=== PATIENT | female | born 1955 | race Caucasian/White ===

== ENCOUNTER 2018-12-24 09:04 | Emergency (ER) | payer MEDICARE ==
--- NOTE | 2018-12-24 09:41 | EDM.PDOC ---
ED HPI GENERAL MEDICAL PROBLEM - General Chief Complaint: General Stated Complaint: SEVERE DIZZINESS, SINUS ISSUES, NASUEA Time Seen by Provider: 12/24/18 09:32 Source of Information: Reports: Patient, RN Notes Reviewed History Limitations: Reports: No Limitations - History of Present Illness INITIAL COMMENTS - FREE TEXT/NARRATIVE: 63-year-old female presents emergency department today with complaint of sinus pressure headache and some dizziness. She does have a known history of recurrent sinusitis usually controlled with Flonase this particular event has been going on for the last several days is progressively gotten worse. She is not had any fevers. Was sent from clinic for further evaluation - Related Data Allergies Allergy/AdvReac Type Severity Reaction Status Date / Time No Known Allergies Allergy Verified 12/24/18 09:12 Home Meds: Home Meds Amoxicillin/Potassium Clav [Augmentin 875-125 Tablet] 1 each PO BID #10 tablet 12/24/18 [Rx] Aspirin 81 mg PO DAILY 12/24/18 [History] FLUoxetine HCl [Fluoxetine HCl] 20 mg PO DAILY 12/24/18 [History] Levothyroxine 245 mcg PO DAILY 12/24/18 [History] Meloxicam 15 mg PO DAILY 12/24/18 [History] Metoprolol Tartrate 25 mg PO DAILY 12/24/18 [History] atorvaSTATin [Lipitor] 80 mg PO DAILY 12/24/18 [History] rOPINIRole [Requip] 0.5 mg PO TID 12/24/18 [History] Past Medical History HEENT History: Reports: Impaired Vision, Sinusitis Cardiovascular History: Reports: CAD, High Cholesterol Gastrointestinal History: Reports: GERD Endocrine/Metabolic History: Reports: Hypothyroidism - Past Surgical History Musculoskeletal Surgical History: Reports: Hip Replacement Social & Family History - Tobacco Use Smoking Status *Q: Heavy Tobacco Smoker Years of Tobacco use: 47 Packs/Tins Daily: 0.5 ED ROS GENERAL - Review of Systems Review Of Systems: See Below Constitutional: Denies: Fever, Chills HEENT: Reports: Sinus Problem. Denies: Rhinitis Respiratory: Reports: No Symptoms Cardiovascular: Reports: No Symptoms GI/Abdominal: Reports: No Symptoms Neurological: Reports: Dizziness (No difficulty with ambulation) ED EXAM, GENERAL - Physical Exam Exam: See Below Exam Limited By: No Limitations General Appearance: Alert, WD/WN, No Apparent Distress Throat/Mouth: Normal Inspection, Normal Lips, Normal Teeth, Normal Gums, Normal Oropharynx, Normal Voice, No Airway Compromise Head: Sinus Tenderness (Frontal predominantly on the left) Neck: Normal Inspection, Supple, Non-Tender, Full Range of Motion Respiratory/Chest: No Respiratory Distress, Lungs Clear, Normal Breath Sounds, No Accessory Muscle Use Cardiovascular: Regular Rate, Rhythm, No Murmur GI/Abdominal: Soft, Non-Tender Course - Vital Signs Last Recorded V/S: Last Vital Signs Temp 96 F 12/24/18 09:27 Pulse 78 12/24/18 09:27 Resp 18 12/24/18 09:27 BP 144/73 H 12/24/18 09:27 Pulse Ox 99 12/24/18 09:27 Departure - Departure Time of Disposition: 09:39 Disposition: Home, Self-Care 01 Condition: Good Clinical Impression: Sinusitis Qualifiers: Sinusitis location: frontal Chronicity: acute Recurrence: recurrent Qualified Code(s): J01.11 - Acute recurrent frontal sinusitis - Discharge Information Prescriptions: Amoxicillin/Potassium Clav [Augmentin 875-125 Tablet] 1 each PO BID #10 tablet Instructions: Sinusitis, Adult, [id number] Referrals: Raisa Weiner DO [Primary Care Provider] - Additional Instructions: Take full course of antibiotics, use Tylenol or Motrin as needed for headache pain, Please followup with your primary care provider in 3-5 days if not better , please call return to the emergency department with worsening of symptoms. - Assessment/Plan Plan: Assessment Acuity = acute Site and laterality = sinusitis Etiology = probable bacterial cause Manifestations = none Location of injury = Home Lab values = none Plan Elected to treat empirically Augmentin 875 by mouth twice a day 10 days medications faxed to [facility] This note was dictated using [employer] recognition software please call with any questions on syntax or grammar.
== END 2018-12-24 09:47 | disposition home or self-care (01) ==
LOC: JP.ED 09:04
DX: J01.11 Acute recurrent frontal sinusitis (principal); E03.9 Hypothyroidism, unspecified; E78.00 Pure hypercholesterolemia, unspecified; F17.210 Nicotine dependence, cigarettes, uncomplicated; Z79.82 Long term (current) use of aspirin; Z79.899 Other long term (current) drug therapy
CPT/HCPCS: 99283

== ENCOUNTER 2019-01-08 06:58 | Day surgery (SDC) | payer MEDICARE ==
[2019-01-08] MEDS ORDERED: Dextrose 5%-Lactated Ringers 1,000 ML IV SCH (07:45)
[2019-01-08] MEDS ORDERED: Midazolam 1 MG/ML 2 ML SDV ONE (08:18)
[2019-01-08] MEDS ORDERED: Propofol 200 MG/20 ML SDV ONE (08:18)
[2019-01-08] MEDS ORDERED: fentaNYL 100 MCG/2 ML SDV ONE (08:18)
--- NOTE | 2019-01-17 08:47 | OR ---
DATE OF PROCEDURE: 01/08/2019 SURGEON: John Laird MD PREOPERATIVE DIAGNOSIS: History of colon polyps. POSTOPERATIVE DIAGNOSES: 1. History of colon polyps with no recurrent polyp formation. 2. Limited left colonic diverticulosis. OPERATIVE PROCEDURE: Flexible colonoscopy. ANESTHESIA: IV sedation. INDICATION FOR PROCEDURE: This is a 63-year-old presenting for a screening colonoscopy. Plan is to proceed with a colonoscopy with biopsies and polypectomy as indicated. Potential risks of procedure including bleeding and perforation were discussed, and the patient wishes to proceed. DETAILS OF PROCEDURE: The patient was taken to the operating room and placed in a left lateral decubitus position. IV sedation was administered, after which the initial digital rectal exam was performed and was unremarkable. Colonoscope was then passed into the rectum with retroflexion revealing uncomplicated hemorrhoidal columns. The scope was eventually passed to the level of the cecum with prep being fairly good. Only a small amount of liquid stool was present to that level. No additional polyp formation was seen. Otherwise, there were no areas of colitis. There were a few scattered uncomplicated diverticula in the left colon. Otherwise, examination was negative. The scope was then withdrawn. Above findings were reconfirmed, and the procedure was concluded. The patient was taken to the recovery room in satisfactory condition. Recommendation would be to repeat the colonoscopy in 5 years. John Laird MD /[id number]
== END 2019-01-08 12:13 | disposition home or self-care (01) ==
LOC: JP.SDS 06:58
PROVIDERS: ATTEND Surgery
DX: Z12.11 Encounter for screening for malignant neoplasm of colon (principal); K57.30 Diverticulosis of large intestine without perforation or abscess without bleeding; K64.9 Unspecified hemorrhoids; K21.9 Gastro-esophageal reflux disease without esophagitis; E03.9 Hypothyroidism, unspecified; E78.5 Hyperlipidemia, unspecified; F17.200 Nicotine dependence, unspecified, uncomplicated; G47.33 Obstructive sleep apnea (adult) (pediatric); Z86.010 Personal history of colon polyps
CPT/HCPCS: G0121; J2250; J2704; J3010; J7042

== ENCOUNTER 2019-12-16 09:05 | Emergency (ER) | payer MEDICARE ==
--- NOTE | 2019-12-16 09:57 | EDM.PDOC ---
ED HPI GENERAL MEDICAL PROBLEM - General Chief Complaint: General Stated Complaint: SOB, LOWER BACK AND NECK PAIN Time Seen by Provider: 12/16/19 09:40 Source of Information: Reports: Patient, Old Records, RN History Limitations: Reports: No Limitations - History of Present Illness INITIAL COMMENTS - FREE TEXT/NARRATIVE: 64 yo female presents with low back pain, ROBERTS, and a mild ODRADO and fatigue. Sx's have waxed and waned since October. Saw her primary a couple weeks ago and was told without testing that this was from a virus and later PT was prescribed which she did. Feels warm and sweaty at times but no fever documented. No known exposures. No orthopnea. Was told by cardiology in the past that she has a single, ? LAD coronary lesion, but has never had chest pain. Has a rare, dry cough, mainly at night. No leg swelling. Appetite is decreased. Last BM 3 days ago, not unusual for her. Feels some sinus pressure. Has subtle nausea without vomiting. Onset: Gradual Onset Date: 11/06/19 Duration: Waxing/Waning Location: Reports: Generalized Quality: Reports: Ache (back) Severity: Mild Improves with: Reports: Rest Worsens with: Reports: Other (exertion) Context: Reports: Other (see HPI) Associated Symptoms: Reports: Cough (rare, dry, at night), Headaches (in sinus areas), Loss of Appetite, Malaise, Nausea/Vomiting (mild nausea without vomiting), Shortness of Breath (on exertion only), Weakness (generalized). Denies: Confusion, Chest Pain, Fever/Chills, Rash, Seizure, Syncope Treatments NURSING HOME PHYSICIAN: Reports: Acetaminophen (Says 1000 mg every 4 hrs.) Neck Pain Score (Numeric/FACES): 5 - Related Data Allergies Allergy/AdvReac Type Severity Reaction Status Date / Time No Known Allergies Allergy Verified 01/08/19 07:16 Home Meds: Home Meds Aspirin 81 mg PO DAILY 12/24/18 [History] FLUoxetine HCl [Fluoxetine HCl] 20 mg PO DAILY 12/24/18 [History] Levothyroxine 225 mcg PO DAILY 12/24/18 [History] Meloxicam 15 mg PO DAILY 12/24/18 [History] Metoprolol Tartrate 25 mg PO DAILY 12/24/18 [History] atorvaSTATin [Lipitor] 80 mg PO DAILY 12/24/18 [History] rOPINIRole [Requip] 0.5 mg PO BEDTIME PRN 12/24/18 [History] Ranitidine HCl [Ranitidine] 150 mg PO DAILY 01/04/19 [History] Doxycycline [Vibra-Tabs] 100 mg PO Q12HR #28 tab 12/16/19 [Rx] Ondansetron [Zofran ODT] 4 mg PO Q6H PRN #10 tab.dis 12/16/19 [Rx] Past Medical History HEENT History: Reports: Impaired Vision, Sinusitis Cardiovascular History: Reports: CAD, High Cholesterol Gastrointestinal History: Reports: Colon Polyp, GERD [employer] History: Reports: Musculoskeletal History: Reports: Osteoarthritis Neurological History: Reports: Vertigo Psychiatric History: Reports: Anxiety Endocrine/Metabolic History: Reports: Hypothyroidism - Infectious Disease History Infectious Disease History: Reports: Chicken Pox 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 - Past Surgical History GI Surgical History: Reports: Appendectomy, Cholecystectomy, Colonoscopy Musculoskeletal Surgical History: Reports: Hip Replacement Other Musculoskeletal Surgeries/Procedures:: right hip Social & Family History - Family History Family Medical History: Noncontributory - Tobacco Use Smoking Status *Q: Current Every Day Smoker Years of Tobacco use: 50 Packs/Tins Daily: 0.5 - Caffeine Use Caffeine Use: Reports: Coffee, Soda - Recreational Drug Use Recreational Drug Use: No ED ROS GENERAL - Review of Systems Review Of Systems: See Below Constitutional: Reports: Malaise, Weakness, Fatigue (Thyroid was normal for her annual physical just before she became ill.), Decreased Appetite. Denies: Fever, Chills HEENT: Reports: Other (sinus pressure) Respiratory: Reports: Shortness of Breath (ROBERTS only), Cough (rare, dry, and at night). Denies: Wheezing, Pleuritic Chest Pain, Sputum, Hemoptysis Cardiovascular: Reports: Dyspnea on Exertion. Denies: Chest Pain, Lightheaded ness, Orthopnea, Palpitations, Syncope Endocrine: Reports: Fatigue GI/Abdominal: Reports: Anorexia, Constipation (last BM 3 days ago), Decreased Appetite, Flatus, Nausea. Denies: Abdominal Pain, Black Stool, Bloody Stool, Distension, Hematemesis, Hematochezia, Melena, Vomiting : Reports: No Symptoms Musculoskeletal: Reports: Back Pain (low) Skin: Reports: No Symptoms Neurological: Reports: No Symptoms Psychiatric: Reports: No Symptoms ED EXAM, GENERAL - Physical Exam Exam: See Below Exam Limited By: No Limitations General Appearance: Alert, WD/WN, No Apparent Distress Eye Exam: Bilateral Eye: Normal Inspection Ears: Normal External Exam, Normal Canal, Hearing Grossly Normal, Normal TMs Ear Exam: Bilateral Ear: Auricle Normal, Canal Normal, TM normal Nose: Normal Inspection, No Blood Throat/Mouth: Normal Inspection, Normal Lips, Normal Teeth, Normal Oropharynx, Normal Voice, No Airway Compromise, Other (oral mucosa slightly dry) Head: Atraumatic, Normocephalic Neck: Normal Inspection. No: Lymphadenopathy (R), Lymphadenopathy (L) Respiratory/Chest: No Respiratory Distress, No Accessory Muscle Use, Crackles (R base). No: Lungs Clear, Normal Breath Sounds, Decreased Breath Sounds, Wheezing, Stridor Cardiovascular: Regular Rate, Rhythm, No Edema, Tachycardia (mildly tachycardic(this is why she is prescribed metoprolol)) GI/Abdominal: Normal Bowel Sounds, Soft, Non-Tender, No Distention. No: Distended, Tender Back Exam: Normal Inspection. No: CVA Tenderness (R), CVA Tenderness (L) Extremities: Normal Inspection, Normal Range of Motion, Non-Tender, No Pedal Edema. No: Pedal Edema Neurological: Alert, Oriented, CN II-XII Intact, Normal Cognition, No Motor/Sensory Deficits Psychiatric: Normal Affect, Anxious Skin Exam: Warm, Dry, Intact, Normal Color, No Rash Course - Vital Signs Text/Narrative:: Orthostatic vitals WNL's Last Recorded V/S: Last Vital Signs Temp 36.7 C 12/16/19 09:21 Pulse 111 H 12/16/19 10:00 Resp 18 12/16/19 09:21 BP 123/81 12/16/19 10:00 Pulse Ox 97 12/16/19 09:21 Orthostatic Blood Pressure [ 123/81 Standing] Orthostatic Blood Pressure [ 113/80 Sitting] Orthostatic Blood Pressure [ 106/72 Supine] - Orders/Labs/Meds Orders: Active Orders 24 hr Category Date Time Status Orthostatic Vital Signs [RC] ASDIRECTED Care 12/16/19 09:51 Active HUMAN GRANULOCYTIC ROOPA-H[facility] Routine Lab 12/16/19 10:20 Received LYME, TOTAL AB TEST/REFLEX Routine Lab 12/16/19 10:20 Received Labs: Laboratory Tests 12/16/19 12/16/19 12/16/19 Range/Units 09:50 10:04 10:26 WBC 4.6 (4.5-11.0) K/uL RBC 4.05 (3.30-5.50) M/uL Hgb 11.4 L (12.0-15.0) g/dL Hct 36.5 (36.0-48.0) % MCV 90 (80-98) fL MCH 28 (27-31) pg MCHC 31 L (32-36) % Plt Count 120 L (150-400) K/uL Sodium 138 L (140-148) mmol/L Potassium 4.1 (3.6-5.2) mmol/L Chloride 103 (100-108) mmol/L Carbon Dioxide 25 (21-32) mmol/L Anion Gap 14.1 H (5.0-14.0) mmol/L BUN 17 (7-18) mg/dL Creatinine 1.0 (0.6-1.0) mg/dL Est Cr Clr Drug Dosing 45.78 mL/min Estimated GFR (MDRD) 55 L (>60) Glucose 98 (74-106) mg/dL Calcium 9.0 (8.5-10.1) mg/dL AST 54 H (15-37) U/L Lactate Dehydrogenase 189 (82-234) U/L Troponin I < 0.017 (0.000-0.056) ng/mL C-Reactive Protein 12.13 H (0.0-0.3) mg/dL Urine Color (YELLOW) Urine Appearance (CLEAR) Urine pH (5.0-8.0) Ur Specific [place] (1.008-1.030) Urine Protein (NEGATIVE) mg/dL Urine Glucose (UA) (NEGATIVE) mg/dL Urine Ketones (NEGATIVE) mg/dL Urine Occult Blood (NEGATIVE) Urine Nitrite (NEGATIVE) Urine Bilirubin (NEGATIVE) Urine Urobilinogen (0.2-1.0) EU/dL Ur Leukocyte Esterase (NEGATIVE) Urine RBC (0-5) Urine WBC (0-5) Ur Epithelial Cells Amorphous Sediment Urine Bacteria Urine Mucus 12/16/19 Range/Units 10:29 WBC (4.5-11.0) K/uL RBC (3.30-5.50) M/uL Hgb (12.0-15.0) g/dL Hct (36.0-48.0) % MCV (80-98) fL MCH (27-31) pg MCHC (32-36) % Plt Count (150-400) K/uL Sodium (140-148) mmol/L Potassium (3.6-5.2) mmol/L Chloride (100-108) mmol/L Carbon Dioxide (21-32) mmol/L Anion Gap (5.0-14.0) mmol/L BUN (7-18) mg/dL Creatinine (0.6-1.0) mg/dL Est Cr Clr Drug Dosing mL/min Estimated GFR (MDRD) (>60) Glucose (74-106) mg/dL Calcium (8.5-10.1) mg/dL AST (15-37) U/L Lactate Dehydrogenase (82-234) U/L Troponin I (0.000-0.056) ng/mL C-Reactive Protein (0.0-0.3) mg/dL Urine Color [place] A (YELLOW) Urine Appearance Cloudy A (CLEAR) Urine pH 5.0 (5.0-8.0) Ur Specific [place] >= 1.030 (1.008-1.030) Urine Protein 100 H (NEGATIVE) mg/dL Urine Glucose (UA) Negative (NEGATIVE) mg/dL Urine Ketones Negative (NEGATIVE) mg/dL Urine Occult Blood Moderate H (NEGATIVE) Urine Nitrite Negative (NEGATIVE) Urine Bilirubin Small (NEGATIVE) Urine Urobilinogen 1.0 (0.2-1.0) EU/dL Ur Leukocyte Esterase Negative (NEGATIVE) Urine RBC Not seen (0-5) Urine WBC Not seen (0-5) Ur Epithelial Cells Moderate Amorphous Sediment Few Urine Bacteria Moderate Urine Mucus Moderate Meds: Medications Discontinued Medications Generic Name Dose Route Start Last Admin Trade Name Freq PRN Reason Stop Dose Admin Ondansetron HCl 4 mg 12/16/19 10:42 Zofran Odt PO 12/16/19 10:43 ONETIME ONE - Radiology Interpretation Free Text/Narrative:: CXR-neg Departure - Departure Time of Disposition: 10:50 Disposition: Home, Self-Care 01 Condition: Fair Clinical Impression: Tick-borne disease - Discharge Information *PRESCRIPTION DRUG MONITORING PROGRAM REVIEWED*: No *COPY OF PRESCRIPTION DRUG MONITORING REPORT IN PATIENT NOLAN: No Prescriptions: Doxycycline [Vibra-Tabs] 100 mg PO Q12HR #28 tab Ondansetron [Zofran ODT] 4 mg PO Q6H PRN #10 tab.dis PRN Reason: Nausea Referrals: Raisa Weiner DO [Primary Care Provider] - Forms: ED Department Discharge Additional Instructions: Take the doxycycline as prescribed, avoid any calcium containing food/supplements 2 hrs before or after this med. Use Zofran as needed for nausea control. Limit your acetaminophen to 1000 mg every 6 hrs maxium. Drink more fluids so that your urine is light yellow in color. Consider Miralax to promote more regular BM's. Recheck with your provider by to review outstanding tests. Sepsis Event Note (ED) - Evaluation Sepsis Screening Result: No Definite Risk - Focused Exam Vital Signs: Vital Signs Temp Pulse Resp BP Pulse Ox 12/16/19 10:00 111 H 123/81 12/16/19 09:21 36.7 C 108 H 18 136/71 97 - My Orders Last 24 Hours: My Active Orders 12/16/19 09:51 Orthostatic Vital Signs [RC] ASDIRECTED 12/16/19 10:20 HUMAN GRANULOCYTIC RO[facility]A-[facility] Routine LYME, TOTAL AB TEST/REFLEX Routine - Assessment/Plan Last 24 Hours: My Active Orders 12/16/19 09:51 Orthostatic Vital Signs [RC] ASDIRECTED 12/16/19 10:20 HUMAN GRANULOCYTIC ROOPA-HGE Routine LYME, TOTAL AB TEST/REFLEX Routine
--- NOTE | 2019-12-16 10:37 | CR ---
CHEST: 2 view CLINICAL HISTORY:Abnormal breath sounds right lung base COMPARISON:None FINDINGS: The heart size, pulmonary vascularity and hilar structures are normal. No infiltrate effusion or pneumothorax is seen. IMPRESSION: No acute cardiopulmonary process.
[2019-12-16] MEDS ORDERED: Ondansetron 4 MG Tab.DIS PO ONE (10:42)
[2019-12-18 14:10] LABS: HGE IGG TITER Negative (Neg:<1:64); HGE IGM TITER Negative (Neg:<1:20)
[2019-12-24 04:08] LABS: IGG P18 AB. Present (.); IGG P23 AB. Absent (.); IGG P28 AB. Absent (.); IGG P30 AB. Absent (.); IGG P39 AB. Present (.); IGG P41 AB. Present (.); IGG P45 AB. Absent (.); IGG P58 AB. Present (.); IGG P66 AB. Absent (.); IGG P93 AB. Absent (.); IGM P23 AB. Present (.); IGM P39 AB. Present (.); IGM P41 AB. Present (.); LYME IGG WB INTERP. Negative (.); LYME IGG/IGM AB 1.81 ISR (0.00-0.90); LYME IGM WB INTERP. Positive (.)
== END 2019-12-16 11:03 | disposition home or self-care (01) ==
LOC: JP.ED 09:05
DX: M54.5 Low back pain (principal); R51 Headache; R06.02 Shortness of breath; R53.83 Other fatigue; I25.10 Atherosclerotic heart disease of native coronary artery without angina pectoris; E78.00 Pure hypercholesterolemia, unspecified; K21.9 Gastro-esophageal reflux disease without esophagitis; M19.90 Unspecified osteoarthritis, unspecified site; E03.9 Hypothyroidism, unspecified; F41.9 Anxiety disorder, unspecified; F17.210 Nicotine dependence, cigarettes, uncomplicated; Z79.82 Long term (current) use of aspirin; Z79.899 Other long term (current) drug therapy
CPT/HCPCS: 36415; 71046; 80048; 81001; 83615; 84450; 84484; 85027; 86140; 86666; 99285; A9270; 86617-59; 86618; 99283

== ENCOUNTER 2023-10-16 07:41 | Day surgery (SDC) | payer MEDICARE ==
[2023-10-16] MEDS: Lactated Ringers 1,000 ML IV SCH (08:39)
[2023-10-16] MEDS ORDERED: Propofol 200 MG/20 ML SDV ONE (08:56)
[2023-10-16] MEDS ORDERED: fentaNYL 100 MCG/2 ML SDV ONE (08:56)
== END 2023-10-16 11:35 | disposition home or self-care (01) ==
LOC: JP.SDS 07:41
PROVIDERS: ATTEND Family Medicine
DX: Z12.11 Encounter for screening for malignant neoplasm of colon (principal); Z86.010 Personal history of colon polyps; K64.8 Other hemorrhoids; K64.4 Residual hemorrhoidal skin tags; E78.5 Hyperlipidemia, unspecified; E03.9 Hypothyroidism, unspecified; K21.9 Gastro-esophageal reflux disease without esophagitis
CPT/HCPCS: G0105; J2704; J3010; J7120

== ENCOUNTER 2023-11-06 06:39 | Day surgery (SDC) | payer MEDICARE ==
[~2023-11-06 06:39] MED LIST: Bupivacaine 0.5% 50 ML MDV ONE
[2023-11-06] MEDS: Nozin Nasal Sanitizer NASBOTH SCH ×2 (07:00→20:25)
[2023-11-06 07:07] LABS: HEMOGLOBIN 12.9 g/dL (11.2-15.5); MEAN CORPUSCULAR HEMOGLOBIN 29.7 pg (31.6-35.5); MEAN CORPUSCULAR HGB CONC 33.9 g/dL (31.6-35.5); MEAN CORPUSCULAR VOLUME 87.4 fL (81.4-99.0); RED BLOOD CELL COUNT 4.35 M/uL (3.77-5.24); WHITE BLOOD CELL COUNT,WBC 4.9 K/uL (3.2-11.0)
[2023-11-06 07:22] LABS: ANION GAP 7.8 mmol/L (5.0-14.0); CALCIUM 9.1 mg/dL (8.5-10.1); CREATININE 0.9 mg/dL (0.6-1.0); EST CRCL DRUG DOSING (CG) 42.83 mL/min; POTASSIUM,K 3.9 mmol/L (3.6-5.2)
[2023-11-06] MEDS: Lactated Ringers 1,000 ML IV SCH (07:37)
[2023-11-06] MEDS ORDERED: Propofol 200 MG/20 ML SDV ONE ×2 (07:37→08:21)
[2023-11-06] MEDS ORDERED: oxyCODONE 5 MG Tab PO PRN (07:38)
[2023-11-06] MEDS ORDERED: Midazolam 1 MG/ML 2 ML SDV ONE (07:38)
[2023-11-06] MEDS ORDERED: fentaNYL 100 MCG/2 ML SDV ONE (07:38)
[2023-11-06] MEDS ORDERED: Ondansetron 4 MG/2 ML SDV IVPUSH PRN (07:39)
[2023-11-06] MEDS ORDERED: Magnesium Hydroxide 400 MG/5 ML Susp 30 ML Cup PO PRN (07:39)
[2023-11-06] MEDS ORDERED: Morphine 2 MG/ML SYRINGE IV PRN (07:39)
[2023-11-06] MEDS ORDERED: Docusate Sodium 100 MG Cap PO PRN (07:39)
[2023-11-06] MEDS ORDERED: rOPINIRole 0.5 MG Tab PO PRN (07:43)
[2023-11-06] MEDS ORDERED: Non-Formulary Medication 1 Each (Calcium Carbonate [Calcium Carbonate] 500 MG Tablet) PO SCH (07:45)
[2023-11-06] MEDS: Albuterol/Ipratropium 3.0-0.5 MG/3 ML Neb Soln NEB ONE (08:00)
[2023-11-06] MEDS ORDERED: ceFAZolin 2 GM in Sodium Chloride 0.9% 50 ML IV ONE (08:15)
[2023-11-06] MEDS: ceFAZolin 2 GM in Premix Bag 1 BAG IV ONE (08:40)
[2023-11-06] MEDS ORDERED: Levothyroxine 25 MCG Tab PO SCH (09:00)
[2023-11-06] MEDS ORDERED: Lactated Ringers 1,000 ML ONE (09:05)
[2023-11-06] MEDS ORDERED: ePHEDrine 50 MG/ML SDV ONE (09:34)
[2023-11-06] MEDS: oxyCODONE 5 MG Tab PO PRN (11:44)
[2023-11-06] MEDS: Sodium Chloride 0.9% 1,000 ML IV SCH (12:12)
[2023-11-06] MEDS: FLUoxetine 20 MG Cap PO SCH (12:12)
[2023-11-06] MEDS: Acetaminophen 325 MG Tab PO SCH (12:12)
[2023-11-06] MEDS: Ketorolac 15 MG/ML SDV IVPUSH PRN (15:59)
[2023-11-06] MEDS: ceFAZolin 2 GM in Premix Bag 1 BAG IV SCH (16:00)
[2023-11-07 06:28] LABS: HEMATOCRIT 30.5 % (34.3-46.0); HEMOGLOBIN 10.2 g/dL (11.2-15.5); MEAN CORPUSCULAR HEMOGLOBIN 29.2 pg (31.6-35.5); MEAN CORPUSCULAR HGB CONC 33.4 g/dL (31.6-35.5); MEAN CORPUSCULAR VOLUME 87.4 fL (81.4-99.0); RED BLOOD CELL COUNT 3.49 M/uL (3.77-5.24)
[2023-11-07] MEDS: Levothyroxine 100 MCG, Levothyroxine 50 MCG, Levothyroxine 25 MCG PO SCH (07:55)
[2023-11-07] MEDS: Pantoprazole 40 MG Tab.CR PO SCH (07:55)
[2023-11-07] MEDS: Aspirin 325 MG Tab.EC PO SCH (08:32)
[2023-11-07] MEDS: Cyanocobalamin (Vitamin B12) 1,000 MCG Tab PO SCH (08:32)
[2023-11-07] MEDS: Metoprolol Tartrate 25 MG Tab PO SCH (08:32)
[2023-11-07] MEDS: Rosuvastatin 5 MG Tab PO SCH (08:32)
[2023-11-07] MEDS: Meloxicam 7.5 MG Tab PO SCH (08:34)
== END 2023-11-07 14:35 | disposition home health service (06) ==
LOC: JP.SDS 06:39 → JP.MS 07:39 → JP.SDS 11-07 14:35
PROVIDERS: ATTEND Specialist
DX: M16.12 Unilateral primary osteoarthritis, left hip (principal); I10 Essential (primary) hypertension; J45.909 Unspecified asthma, uncomplicated; K21.9 Gastro-esophageal reflux disease without esophagitis
CPT/HCPCS: 27447; 36415; 72170; 80048; 85027; 97110; 97116; 97161; 97165; 97530; 97535; A9270; C1713; C1776; J0690; J1885; J2250; J2704; J3010; J3490; J7030; J7120; 01214-QZ; J0665; J7620